=== PATIENT | female | born 1990 | race American Indian/Alaskan Native ===

== ENCOUNTER 2018-09-14 18:41 | Emergency (ER) | payer BC ==
[~2018-09-14] VITALS: Ht 162.6 cm; Wt 79.4 kg
[2018-09-14] MEDS ORDERED: LORAZEPAM 1 MG TABLET ONE (19:13)
[2018-09-14] MEDS ORDERED: LORAZEPAM 0.5 MG TABLET PO ONE (19:15)
--- NOTE | 2018-09-14 19:42 | NUR ---
Patient discharged to home in stable conditon. Written and verbal after care instructions given. Patient verbalizes understanding of instructions. Pt ambulated out of ER in steady gait with friend who will drive home. All belongings with pt. VSS. NAD noted. Pt states she feels much better.
[2018-09-14 19:51] VITALS: BP 122/62
== END 2018-09-14 19:52 | disposition home or self-care (01) ==
LOC: ER 18:55
DX: F41.1 Generalized anxiety disorder (principal); F41.0 Panic disorder [episodic paroxysmal anxiety]; R06.4 Hyperventilation
CPT/HCPCS: 93005

== ENCOUNTER 2019-06-26 17:47 | Emergency (ER) | payer BC ==
[~2019-06-26] VITALS: Ht 165.1 cm; Wt 76.7 kg
[2019-06-26] MEDS ORDERED: PAXIL (17:59)
--- NOTE | 2019-06-26 18:01 | NUR ---
CHRISTO GALLO AT BEDSIDE FOR MSE.
[2019-06-26] MEDS ORDERED: IV NORMAL SALINE 1000 ML BAG IV ONE (18:15)
[2019-06-26] MEDS ORDERED: FAMOTIDINE. 20 MG/2 ML VIAL IV ONE ×2 (18:15→18:31)
[2019-06-26] MEDS ORDERED: ONDANSETRON 4 MG/2 ML VIAL IV ONE (18:15)
[2019-06-26] MEDS ORDERED: FENTANYL CITRATE 100 MCG/2 ML AMPUL IV ONE (18:15)
[2019-06-26] MEDS ORDERED: ONDANSETRON 4 MG/2 ML VIAL ONE (18:31)
[2019-06-26] MEDS ORDERED: FENTANYL CITRATE 100 MCG/2 ML AMPUL ONE (18:31)
[2019-06-26 18:34] LABS: BASOPHILS # (AUTO) 0.1 K/uL (0.0-8.0); BASOPHILS % (AUTO) 0.4 % (0.0-2.0); HEMATOCRIT 44.8 % (31.2-41.9); HEMOGLOBIN 14.9 g/dL (10.9-14.3); LYMPHOCYTES # (AUTO) 1.2 K/uL (20.0-40.0); LYMPHOCYTES % (AUTO) 7.2 % (20.5-51.5); MEAN CORPUSCULAR HEMOGLOBIN 33.3 uug (24.7-32.8); MEAN CORPUSCULAR HGB CONC 33 g/dL (32.3-35.6); MEAN CORPUSCULAR VOLUME 100.1 fL (75.5-95.3); MONOCYTES # (AUTO) 0.6 K/uL (2.0-10.0); MONOCYTES % (AUTO) 3.3 % (0.0-11.0); NEUTROPHILS # (AUTO) 15.3 K/uL (1.8-8.9); NEUTROPHILS % (AUTO) 89.1 % (38.5-71.5); PLATELET COUNT (AUTO) 311 K/uL (179-408); RED BLOOD CELL COUNT(AUTO) 4.47 MIL/uL (3.63-4.92); WHITE BLOOD COUNT (AUTO) 17.2 K/uL (3.8-11.8)
[2019-06-26 18:36] LABS: *BILIRUBIN,URIN 1+ (NEGATIVE); *BLOOD, URINE 1+ (NEGATIVE); *CLARITY,URINE SLIGHTLY CLOUDY (CLEAR); *COLOR,URINE YELLOW (YELLOW); *KETONES,URINE 4+ (NEGATIVE); LEUKOCYTE ESTERASE ,URINE NEGATIVE (NEGATIVE); NITRITE, URINE NEGATIVE (NEGATIVE); PH,URINE 7.5 (5.0-8.0); UGLUCOSE NEGATIVE (NEGATIVE)
[2019-06-26 18:39] LABS: *URINE HCG, QUAL NEGATIVE (NEGATIVE); BACTERIA,URINE NONE SEEN /HPF (NONE SEEN); SQUAMOUS EPITHELIAL CELL,UR MODERATE /HPF (NONE SEEN); WBC,URINE 0-3 /HPF (0-3)
[2019-06-26 18:40] LABS: MUCUS,URINE FEW /LPF (0-FEW)
[2019-06-26 18:45] LABS: BILIRUBIN,DIRECT 0.3 mg/dL (0.0-0.2); BILIRUBIN,TOTAL 1.5 mg/dL (0.2-1.0); CREATININE 0.8 mg/dL (0.6-1.3); POTASSIUM 3.6 mmol/L (3.5-5.1); TOTAL PROTEIN, SERUM 8.9 g/dL (6.4-8.2)
--- NOTE | 2019-06-26 18:48 | NUR ---
US TECH AT BEDSIDE.
--- NOTE | 2019-06-26 18:56 | NUR ---
SHIFT REPORT GIVEN TO JOSHUA Esparza RN.
[2019-06-26] MEDS ORDERED: HYDROMORPHONE 1 MG/1 ML DISP.SYRIN IV ONE ×2 (19:15→20:15)
[2019-06-26] MEDS ORDERED: PROCHLORPERAZINE EDISYLATE 10 MG/2 ML VIAL IV ONE (19:30)
[2019-06-26] MEDS ORDERED: PANTOPRAZOLE SODIUM 40 MG VIAL IV ONE (19:30)
[2019-06-26] MEDS ORDERED: PROCHLORPERAZINE EDISYLATE 10 MG/2 ML VIAL ONE (19:35)
[2019-06-26] MEDS ORDERED: PANTOPRAZOLE SODIUM 40 MG VIAL ONE (19:40)
--- NOTE | 2019-06-26 19:42 | NUR ---
ERMD at bedside explaining procedure
--- NOTE | 2019-06-26 20:05 | NUR ---
Patient is refusing the Hida scan, CARLA made aware and he stated that he will speak to the patient.
[2019-06-26] MEDS ORDERED: HYDROMORPHONE 1 MG/1 ML DISP.SYRIN ONE (20:17)
[2019-06-26] MEDS ORDERED: HYDROMORPHONE 1 MG/1 ML DISP.SYRIN IM ONE (20:30)
--- NOTE | 2019-06-26 20:31 | NUR ---
Patient does not wish to proceed with medical care recommended by Dr. Woodall. Patient given information related to possible complications, up to and including , which could occur as a result of leaving the hospital at this time. Patient verbalizes understanding of risks involved due to leaving against medical advice. Patient has signed AMA form. Patient ambulated with stable gait.
[2019-06-26 21:23] VITALS: BP 121/86
== END 2019-06-26 20:31 | disposition left against medical advice (07) ==
LOC: ER 17:52
DX: R10.13 Epigastric pain (principal); R11.10 Vomiting, unspecified; F41.9 Anxiety disorder, unspecified; Z79.899 Other long term (current) drug therapy
CPT/HCPCS: 36415; 76705; 80048; 80076; 81000; 81001; 83690; 84703; 85025; 96361; 96372; 96374; 96375; 99284; C9113; J0780; J1170; J2405; J3010; J3490; A4663; J7030

== ENCOUNTER 2019-08-04 11:45 | Emergency (ER) | payer BC ==
[~2019-08-04] VITALS: Ht 162.6 cm; Wt 77.1 kg
[~2019-08-04 11:45] MED LIST: PAXIL
--- NOTE | 2019-08-04 12:00 | NUR ---
pt ambulated in a steady gait A&Ox4. c/o right hand pain s/p fall x2 days ago. pain radiates to right forearm. pt able to move all digits and sensation present. no neural deficits noted. speech clear and able to follow commands / make needs known. breathing even and unlabored. no SOB noted. no cardiovascular distress noted. pulses palpable. denies / GI distress noted. fall precautions implemented per protocol. bed low, siderails up x2, call light within reach
[2019-08-04 12:31] VITALS: BP 131/84
== END 2019-08-04 12:29 | disposition home or self-care (01) ==
LOC: ER 11:46
DX: S60.221A Contusion of right hand, initial encounter (principal); F41.9 Anxiety disorder, unspecified; Z79.899 Other long term (current) drug therapy; W18.30XA Fall on same level, unspecified, initial encounter; Y93.89 Activity, other specified; Y92.89 Other specified places as the place of occurrence of the external cause; Y99.8 Other external cause status
CPT/HCPCS: 73130; A4663

== ENCOUNTER 2020-03-09 05:01 | Emergency (ER) | payer BC ==
[~2020-03-09] VITALS: Ht 162.6 cm; Wt 72.6 kg
--- NOTE | 2020-03-09 05:14 | NUR ---
PT PRESENTED TO ER AMBULATORY C/O PAIN ON LEFT WRIST A/OX4. ABLE TO SPEAK IN COMPLETE SENTENCES. ABLE TO MAKE NEEDS KNOWN RESPIRATION EVEN AND UNLABORED NO CARDIOVASCULAR DISTRESS NOTED DENIES CHANGES IN /GI SR UP FOR SAFETY. BED LOCKED AND LOWEST POSITION. INSTRUCTED PT TO CALL NURSE FOR ASSISTANCE MONITORED ACCORDINGLY
--- NOTE | 2020-03-09 05:16 | NUR ---
Dr. Freitas at bedside for MSE
[2020-03-09] MEDS ORDERED: ONDANSETRON ODT 4 MG TAB.RAPDIS ONE (05:28)
[2020-03-09] MEDS ORDERED: HYDROCODONE/APAP 10-325 MG TABLET ONE (05:29)
[2020-03-09] MEDS ORDERED: ONDANSETRON ODT 4 MG TAB.RAPDIS SL ONE (05:30)
[2020-03-09] MEDS ORDERED: HYDROCODONE/APAP 10-325 MG TABLET PO ONE (05:30)
--- NOTE | 2020-03-09 05:54 | NUR ---
Patient discharged to home in stable condition. Written and verbal after care instructions given. Patient verbalizes understanding of instructions. Stressed follow up or return to ER for worsening s/s. A/OX4. ABLE TO SPEAK IN COMPLETE SENTENCES. NO SIGNS OF DISTRESS. INSTRUCTED PT NOT TO DRIVE HOME. PT'S WILL DRIVE PT HOME.
[2020-03-09 06:01] VITALS: BP 108/75
== END 2020-03-09 05:54 | disposition home or self-care (01) ==
LOC: ER 05:04
PROC: 2W3DX1Z Immobilization of Left Lower Arm using Splint (ICD-10-PCS; principal; 2020-03-09)
DX: S52.532A Colles' fracture of left radius, initial encounter for closed fracture (principal); W01.0XXA Fall on same level from slipping, tripping and stumbling without subsequent striking against object, initial encounter; Y92.89 Other specified places as the place of occurrence of the external cause
CPT/HCPCS: 73090; 73110; A4663; Q0162